=== PATIENT | female | born 1945 | race Caucasian/White ===

== ENCOUNTER → 2017-10-29 | Outpatient (CLI) | payer MEDICARE | LOC: M.RAD 09-18 15:25 | DX: Z12.31 Encounter for screening mammogram for malignant neoplasm of breast (principal); N91.2 Amenorrhea, unspecified; Z78.0 Asymptomatic menopausal state ==

== ENCOUNTER 2019-01-24 11:39 | Inpatient (IN) | payer MEDICARE ==
[~2019-01-24] VITALS: Ht 162.6 cm; Wt 69.7 kg
[2019-01-24 11:40] VITALS: BP 168/102
[2019-01-24] MEDS ORDERED: ZOLOFT100 MG PO (11:49)
[2019-01-24 12:05] LABS: ABSOLUTE BASOPHILS 0.1 thou/uL (0.0-0.2); ABSOLUTE EOSINOPHILS 0.1 thou/uL (0.0-0.7); ABSOLUTE LYMPHOCYTES 1.1 thou/uL (0.8-5.3); ABSOLUTE MONOCYTES 0.3 thou/uL (0.0-1.2); ABSOLUTE NEUTROPHILS 3.7 thou/uL (1.6-8.1); BASOPHILS 1.2 %; EOSINOPHILS 1.3 %; HEMATOCRIT 36.1 % (37.0-47.0); HEMOGLOBIN 12.4 gm/dL (12.0-15.0); LYMPHOCYTES 20.9 %; MCH 30.7 pg (26.0-34.0); MCHC 34.3 g/dL (28.0-37.0); MCV 89.6 fL (80.0-100.0); MPV 6.3 fl. (7.2-11.1); NUCLEATED RBCS 0 /100WBC; PLATELET COUNT* 292 thou/uL (150-400); POLYS 70.6 %; RBC 4.03 mil/uL (4.20-5.00); RDW-CV 13.1 % (10.5-14.5); WBC 5.2 thou/uL (4.0-11.0)
[2019-01-24 12:12] LABS: PROTIME 10.6 Seconds (9.20-11.50)
[2019-01-24 12:14] LABS: CALCIUM 8.7 mg/dL (8.5-10.1); CREATININE 0.8 mg/dL (0.6-1.3); POTASSIUM 3.6 mmol/L (3.5-5.1)
[2019-01-24 12:18] LABS: ALBUMIN 3.4 g/dL (3.4-5.0); TOTAL BILIRUBIN 0.5 mg/dL (<0.1-1.0); TOTAL PROTEIN 7.1 g/dL (6.4-8.2)
[2019-01-24 13:42] LABS: URINE BILIRUBIN NEGATIVE (Negative); URINE BLOOD 2+ (Negative); URINE COLOR YELLOW; URINE GLUCOSE-RANDOM NEGATIVE (Negative); URINE KETONES NEGATIVE (Negative); URINE LEUKOCYTES-REFLEX 1+ (Negative); URINE PROTEIN TRACE (Negative); URINE UROBILINOGEN 0.2 E.U./dl (0.2-1.0)
[2019-01-24 13:44] LABS: URINE CLARITY CLOUDY; URINE NITRITE-REFLEX POSITIVE (Negative)
[2019-01-24 14:00] LABS: SQUAMOUS 0-3 Few /LPF (0-3)
[2019-01-24 14:01] LABS: BACTERIA-REFLEX >30 Many /HPF (None Seen); CASTS None Seen /LPF (None Seen); CRYSTALS None Seen /LPF (None Seen); URINE RBC >20 Many /HPF (0-2); URINE WBC-REFLEX >25 Many /HPF (0-5)
[2019-01-24 14:52] VITALS: BP 163/81
[2019-01-24 15:10] VITALS: BP 158/84
--- NOTE | 2019-01-24 15:54 | EKG ---
[place] [address] ELECTROCARDIOGRAM REPORT Name: FIORDALIZA CHRISTIANSON Room: [address] ADM IN .R.#: [id number] Admission: 01/24/19 Attend Phys: Alma Lamb Discharge: Date of : 47 Report #: [id number] THIS REPORT FOR: //name// [facility] ED Test Date: 2019-01-24 Test Time: 11:51:51 Pat Name: FIORDALIZA CHRISTIANSON Department: Room: [facility] Gender: F Import Export Manager: dela cruz : 1945 Requested By: Santo Foreman Order Number: [id number] MD: Bran Castaneda Measurements Intervals [place] Rate: 74 P: 64 UT: 148 QRS: 50 QRSD: 80 T: 63 QT: 383 QTc: 425 Interpretive Statements Sinus rhythm Borderline T wave abnormalities Compared to ECG 02/28/2008 06:45:48 T-wave abnormality now present Electronically Signed On 01-24-2019 15:54:18 POLICY WRITER TYPIST by Bran Castaneda [email or web address] <ELECTRONICALLY SIGNED> By: Bran Castaneda MD, [facility] 01/24/19 1554 1151 1151 Bran Castaneda MD, [facility] /EPI
[2019-01-24] MEDS ORDERED: IMODIUM A-D2 MG PO (16:05)
[2019-01-24] MEDS ORDERED: CLARITIN10 M3 PO (16:07)
[2019-01-24] MEDS ORDERED: FAMOTIDINE10 MG PO (16:08)
--- NOTE | 2019-01-24 16:12 | 2DMMODE ---
[place] [address] 2 D/M-MODE ECHOCARDIOGRAM Name: FIORDALIZA CHRISTIANSON Room: [address] IN [facility]#: [id number] Admission: 01/24/19 Attend Phys: Alma mayberry Sa Discharge: Date of : 47 Date of Service: 01/24/19 1612 Report #: [id number] THIS REPORT FOR: //name// APPROVED REPORT Study performed: 01/24/2019 15:10:55 EXAM: Comprehensive 2D, Doppler, and color-flow Echocardiogram Patient Location: In-Patient Room #: [facility] Status: routine BSA: 1.67 HR: 65 bpm BP: 162/75 mmHg Rhythm: NSR Other Information Study Quality: Good Indications CVA/TIA Echo Enhancing Agent Indication: Rule out Shunt Agent(s) / Amount(s) Used: Agitated Saline 10 cc 2D Dimensions IVSd: 14.83 (7-11mm) LVOT Diam: 20.25 (18-24mm) LVDd: 43.88 mm PWd: 11.42 (7-11mm) LVDs: 32.88 (25-40mm) Aortic Root: 30.18 mm Volumes Left Atrial Volume (Systole) LA ESV Index: 29.20 mL/m2 Aortic Valve AoV Peak Carlin.: 0.87 m/s AO Peak Gr.: 3.00 mmHg LVOT Max P.21 mmHg AO Mean Gr.: 1.90 mmHg LVOT Mean P.97 mmHg LVOT Max V: 0.74 m/s AO V2 VTI: 18.38 cm LVOT Mean V: 0.45 m/s NADIYA (VTI): 2.90 cm2 LVOT V1 VTI: 16.54 [place] [address] 2 D/M-MODE ECHOCARDIOGRAM Name: FIORDALIZA CHRISTIANSON Room: [address] IN .R.#: [id number] Admission: 01/24/19 Attend Phys: Alma mayberry Sa Discharge: Date of : 47 Date of Service: 01/24/19 1612 Report #: [id number] Mitral Valve E/A Ratio: 0.69 MV Decel. Time: 354.30 ms MV E Max Carlin.: 0.47 m/s MV PHT: 102.75 ms MVA (PHT): 2.14 cm2 TDI E/Lateral E': 5.88 E/Medial E': 6.71 Medial E' Carlin.: 0.07 m/s Lateral E' Carlin.: 0.08 m/s Pulmonary Valve PV Peak Carlin.: 0.63 m/s PV Peak Gr.: 1.60 mmHg Tricuspid Valve RAP Estimate: 5.00 mmHg TR Peak Gr.: 30.38 mmHg RVSP: 35.00 mmHg PA Pressure: 35.00 mmHg Left Ventricle The left ventricle is normal size. There is normal LV segmental wall motion. Mild concentric left ventricular hypertrophy. Left ventricular systolic function is normal. The left ventricular ejection fraction is within the normal range. LVEF is 55-60%. Grade I - abnormal relaxation pattern. Right Ventricle The right ventricle is normal size. The right ventricular systolic function is normal. Atria Left atrium is mildly dilated. Interatrial septum is intact without evidence of ASD or PFO. The right atrium size is normal. Aortic Valve Mild aortic valve sclerosis. No aortic regurgitation is present. There is no aortic valvular stenosis. Mitral Valve There is mitral annular calcification. Trace mitral regurgitation. No evidence of mitral valve stenosis. Tricuspid Valve The tricuspid valve is normal in structure. Trace tricuspid regurgitation. estimated pa pressure 40 [place] [address] 2 D/M-MODE ECHOCARDIOGRAM Name: FIORDALIZA CHRISTIANSON Room: [address]#: [id number] Admission: 01/24/19 Attend Phys: Alma mayberry Sa Discharge: Date of : 47 Date of Service: 01/24/19 1612 Report #: [id number] Pulmonic Valve Pulmonic valve is not well visualized. There is no pulmonic valvular regurgitation. Great Vessels The aortic root is normal in size. IVC is normal in size and collapses >50% with inspiration. Pericardium There is no pericardial effusion. <Conclusion> Mild concentric left ventricular hypertrophy. LVEF is 55-60%. Left atrium is mildly dilated. Interatrial septum is intact without evidence of ASD or PFO. <ELECTRONICALLY SIGNED> By: Bran Castaneda MD, FACC 01/24/19 161 11 11 Bran Castaneda MD, FACC /INF
[2019-01-24 20:00] VITALS: BP 171/78
[2019-01-25] VITALS: BP 171/78
[2019-01-25 04:00] VITALS: BP 178/78
[2019-01-25 04:50] LABS: ALBUMIN 2.6 g/dL (3.4-5.0); ALKALINE PHOSPHATASE 56 U/L (46-116); ANION GAP 9 mmol/L (7-16); BUN 15 mg/dL (7-18); CHLORIDE 105 mmol/L (98-107); CHOLESTEROL 205 mg/dL (<200); CO2 22 mmol/L (21-32); CREATININE 0.6 mg/dL (0.6-1.3); GLUCOSE 96 mg/dL (70-99); HDL CHOLESTEROL 25 mg/dL (>40); LDL CHOLESTEROL 130 mg/dL (<100); POTASSIUM 3.6 mmol/L (3.5-5.1); SGOT 16 U/L (15-37); SGPT 10 U/L (30-65); SODIUM 136 mmol/L (136-145); TC:HDL 8.2 Ratio (Not establshd); TOTAL BILIRUBIN 0.3 mg/dL (<0.1-1.0); TRIGLYCERIDE 254 mg/dL (<150); VLDL 51 mg/dL (<40)
[2019-01-25 05:07] LABS: SERUM ASSESSMENT Slight Lipemia
[2019-01-25 09:00] VITALS: BP 174/73
[2019-01-25 11:42] VITALS: BP 168/74
[2019-01-25 15:57] VITALS: BP 135/76
[2019-01-26] VITALS: BP 189/78
[2019-01-26 02:06] LABS: GLYCOHEMOGLOBIN (HGB A1C) 5.7 % (4.8-5.6)
[2019-01-26 04:00] VITALS: BP 151/62
[2019-01-26 08:00] VITALS: BP 109/76
[2019-01-26] MEDS ORDERED: HYDROCHLOROTHIA25 M1 PO (10:44)
[2019-01-26] MEDS ORDERED: ASA5UEC PO (10:44)
[2019-01-26] MEDS ORDERED: MACROBID 100 M100 MG PO (10:44)
[2019-01-26] MEDS ORDERED: LIPITOR 40 MG T40 M1 PO (10:44)
[2019-01-26 12:16] VITALS: BP 170/65
[2019-01-26 15:51] VITALS: BP 173/85
[2019-01-26 17:51] VITALS: BP 173/85
--- NOTE | 2019-02-04 13:36 | CON ---
[address] [address] CONSULTATION Name: CHRISTIANSONFIORDALIZA Meaghan Room: [address] IN M.R.#: [id number] Admission: 01/24/19 Attend Phys: Alma Lamb Discharge: 01/26/19 Date of : 47 Report #: [id number] THIS REPORT FOR: //name// CC: Alma Betts DATE OF SERVICE: 01/25/2019 HISTORY OF PRESENT ILLNESS: This is a 73-year-old female patient who was evaluated by me for weakness in the right lower extremity and to some extent in the right upper extremity the day prior to admission. This started spontaneously without any trauma. It has not fluctuated much. She was admitted with aggravation of her weakness, but apparently has been stable since she has been admitted. She has a known history of hypertension. She is completely noncompliant with that. She does not take her medication. It is not because of finances. She said medication cause some nausea and vomiting. REVIEW OF SYSTEMS: Negative for any prior clinical stroke, but she does have an uncontrollable hypertension. She said that her blood pressure usually runs lower than what has been. She has a prior history of hysterectomy, anxiety, and depression. She used to smoke, but does not smoke now. A 14-point review of systems was carried out and was positive as described above. PAST MEDICAL HISTORY: Negative for stroke. FAMILY HISTORY: Negative for any early age stroke. SOCIAL HISTORY: She has a history of smoking, but does not smoke now. PHYSICAL EXAMINATION: NEUROLOGIC: Indicate that she is alert, responsive, able to follow simple and complex command. Her speech, concentration, fund of knowledge and memory is at her baseline. Cranial nerve examination II through XII looks unremarkable. She is definitely weak on the right side. Her sensation looks intact. There is no meningeal sign in this patient. There is no carotid bruit. IMAGING: She did have an MRI of the brain, which was reviewed that confirmed the findings. She had an MRA, which was okay. She had carotid Dopplers, which demonstrated diffuse disease, but not any hemodynamically significant stenosis. Her sed rate is somewhat high. Her lipid profile is markedly abnormal. Her blood pressure is running in acceptable range. It is 168/74. IMPRESSION: 1. Lacunar cerebrovascular accident in the location that is typical for small vessel disease caused by uncontrolled hypertension. 2. [place] [address] CONSULTATION Name: FIORDALIZA CHRISTIANSON Room: [address]#: [id number] Admission: 01/24/19 Attend Phys: Alma Lamb Discharge: 01/26/19 Date of : 47 Report #: [id number] 3. Noncompliance. 4. Uncontrolled hypertension. 5. Somewhat high sed rate. RECOMMENDATIONS: 1. Since is aspirin naive, so we will continue aspirin for the time being. 2. Intense statin therapy. 3. Sed rate evaluation as an outpatient. 4. Control her blood pressure, but cautiously. We should not lower the blood pressure too fast, but it needs to be lower than what she came in with. I will suggest putting her on some antihypertensive and keeping the blood pressure around 140-150 systolic. All of it was discussed with the family and the patient. Time spent about 50 minutes, majority counseling and coordinating. From neurological perspective, workup is complete and she can be transferred to rehabilitation whenever the bed is available. <ELECTRONICALLY SIGNED> By: Vishal Borja MD 02/04/19 1336 1217 [id number] Borja MD /nt
== END 2019-01-26 18:45 | DRG 65 ==
LOC: M.ERS 11:39 → M.2W 13:42 → M.TBA-ER 13:42 → M.2W 15:25
PROVIDERS: Emergency Medicine Emergency Medical Services; ADMIT Family Medicine
DX: I63.9 Cerebral infarction, unspecified (principal); N39.0 Urinary tract infection, site not specified; I10 Essential (primary) hypertension; F41.9 Anxiety disorder, unspecified; F32.9 Major depressive disorder, single episode, unspecified; B96.20 Unspecified Escherichia coli [E. coli] as the cause of diseases classified elsewhere; E78.5 Hyperlipidemia, unspecified; Z88.7 Allergy status to serum and vaccine; Z90.49 Acquired absence of other specified parts of digestive tract; Z88.0 Allergy status to penicillin; Z88.2 Allergy status to sulfonamides; Z90.710 Acquired absence of both cervix and uterus; Z79.82 Long term (current) use of aspirin; Z91.19 Patient's noncompliance with other medical treatment and regimen; Z23 Encounter for immunization

== ENCOUNTER 2019-01-26 13:10 | Inpatient (IN) | payer MEDICARE ==
[~2019-01-26] VITALS: Ht 162.6 cm; Wt 70.3 kg
[~2019-01-26 13:10] MED LIST: ASA5UEC PO; CLARITIN10 M3 PO; FAMOTIDINE10 MG PO; HYDROCHLOROTHIA25 M1 PO; IMODIUM A-D2 MG PO; LIPITOR 40 MG T40 M1 PO; MACROBID 100 M100 MG PO; ZOLOFT100 MG PO
[2019-01-26 19:30] VITALS: BP 192/77
[2019-01-27 04:35] LABS: HEMATOCRIT 31.2 % (37.0-47.0); HEMOGLOBIN 10.6 gm/dL (12.0-15.0); MCH 30.5 pg (26.0-34.0); MCHC 34.1 g/dL (28.0-37.0); MCV 89.5 fL (80.0-100.0); MPV 6.6 fl. (7.2-11.1); RBC 3.48 mil/uL (4.20-5.00); RDW-CV 12.9 % (10.5-14.5); WBC 6.2 thou/uL (4.0-11.0)
[2019-01-27 04:39] LABS: CALCIUM 8.5 mg/dL (8.5-10.1); CREATININE 0.6 mg/dL (0.6-1.3)
[2019-01-27 07:57] VITALS: BP 149/74
[2019-01-27 19:41] VITALS: BP 144/73
[2019-01-28 04:37] LABS: HEMATOCRIT 31.9 % (37.0-47.0); HEMOGLOBIN 10.6 gm/dL (12.0-15.0); MCH 30.2 pg (26.0-34.0); MCHC 33.2 g/dL (28.0-37.0); MPV 6.7 fl. (7.2-11.1); RBC 3.5 mil/uL (4.20-5.00); RDW-CV 13.1 % (10.5-14.5); WBC 6.3 thou/uL (4.0-11.0)
[2019-01-28 05:01] LABS: CALCIUM 8.7 mg/dL (8.5-10.1); CREATININE 0.7 mg/dL (0.6-1.3); MAGNESIUM 2.1 mg/dL (1.8-2.4); POTASSIUM 4.4 mmol/L (3.5-5.1)
[2019-01-28 08:27] VITALS: BP 156/90
[2019-01-28 20:13] VITALS: BP 139/69
[2019-01-29 07:46] VITALS: BP 138/58
[2019-01-29 20:17] VITALS: BP 123/63
[2019-01-30 07:46] VITALS: BP 165/78
[2019-01-30 10:49] LABS: URINE BILIRUBIN NEGATIVE (Negative); URINE BLOOD 3+ (Negative); URINE CLARITY SL CLOUDY; URINE COLOR YELLOW; URINE GLUCOSE-RANDOM NEGATIVE (Negative); URINE KETONES NEGATIVE (Negative); URINE LEUKOCYTES-REFLEX 1+ (Negative); URINE NITRITE-REFLEX NEGATIVE (Negative); URINE PROTEIN 1+ (Negative); URINE SPECIFIC GRAVITY <= 1.005 (1.005-1.030); URINE UROBILINOGEN 0.2 E.U./dl (0.2-1.0)
[2019-01-30 11:07] LABS: SQUAMOUS 0-3 Few /LPF (0-3)
[2019-01-30 11:08] LABS: URINE WBC-REFLEX 0-5 Rare /HPF (0-5)
[2019-01-30 11:09] LABS: BACTERIA-REFLEX >30 Many /HPF (None Seen); CASTS None Seen /LPF (None Seen); CRYSTALS None Seen /LPF (None Seen); MUCUS None Seen strn/LPF (None Seen)
[2019-01-30 19:30] VITALS: BP 116/77
[2019-01-31 04:06] LABS: HEMATOCRIT 29.2 % (37.0-47.0); HEMOGLOBIN 9.9 gm/dL (12.0-15.0); MCH 30.6 pg (26.0-34.0); MCHC 33.9 g/dL (28.0-37.0); MCV 90.2 fL (80.0-100.0); MPV 6.3 fl. (7.2-11.1); RBC 3.24 mil/uL (4.20-5.00); RDW-CV 13.2 % (10.5-14.5); WBC 6.6 thou/uL (4.0-11.0)
[2019-01-31 04:30] LABS: CALCIUM 8.3 mg/dL (8.5-10.1); MAGNESIUM 2.3 mg/dL (1.8-2.4); POTASSIUM 4.5 mmol/L (3.5-5.1)
[2019-01-31 04:40] LABS: CREATININE 4.4 mg/dL (0.6-1.3)
[2019-01-31 07:49] VITALS: BP 134/59
[2019-01-31 19:30] VITALS: BP 139/62
[2019-02-01 06:29] LABS: CALCIUM 8.1 mg/dL (8.5-10.1); CREATININE 5.9 mg/dL (0.6-1.3); MAGNESIUM 1.9 mg/dL (1.8-2.4); POTASSIUM 4.2 mmol/L (3.5-5.1)
[2019-02-01 08:00] VITALS: BP 148/67
[2019-02-01 10:28] LABS: URINE BILIRUBIN NEGATIVE (Negative); URINE BLOOD 2+ (Negative); URINE CLARITY CLEAR; URINE COLOR YELLOW; URINE GLUCOSE-RANDOM NEGATIVE (Negative); URINE KETONES NEGATIVE (Negative); URINE LEUKOCYTES-REFLEX 1+ (Negative); URINE NITRITE-REFLEX NEGATIVE (Negative); URINE PROTEIN NEGATIVE (Negative); URINE SPECIFIC GRAVITY <= 1.005 (1.005-1.030); URINE UROBILINOGEN 0.2 E.U./dl (0.2-1.0)
[2019-02-01 10:42] LABS: SQUAMOUS 0-3 Few /LPF (0-3)
[2019-02-01 10:43] LABS: BACTERIA-REFLEX 1-9 Few /HPF (None Seen); CASTS None Seen /LPF (None Seen); CRYSTALS None Seen /LPF (None Seen); MUCUS 0-3 Light strn/LPF (None Seen); URINE RBC 3-10 Few /HPF (0-2); URINE WBC-REFLEX 0-5 Rare /HPF (0-5)
[2019-02-01 19:30] VITALS: BP 117/44
[2019-02-02 05:25] LABS: CREATININE 6.4 mg/dL (0.6-1.3); POTASSIUM 4.8 mmol/L (3.5-5.1)
[2019-02-02 07:45] VITALS: BP 167/56
--- NOTE | 2019-02-02 12:11 | CON ---
[address] [address] CONSULTATION Name: CHRISTIANSONFIORDALIZA Meaghan Room: [address] ADM IN M.R.#: [id number] Admission: 01/26/19 Attend Phys: Juan Daniel Flores MD Discharge: Date of : 47 Report #: [id number] THIS REPORT FOR: //name// CC: Syed Newmanon Juan Daniel Flores DATE OF SERVICE: 02/01/2019 NEPHROLOGY CONSULTATION LOCATION: The patient is at [facility]. She is in room 324 on the rehab unit. ATTENDING PHYSICIAN: Juan Daniel Flores MD I am asked to see this 73-year-old female at the request of Dr. Frances for acute kidney injury. HISTORY OF PRESENT ILLNESS: The patient suffered a CVA on 01/24/2019 and has had weakness in her right upper and lower extremity. She is on the rehab unit and is improving. She has no history of any acute kidney injury in the past. She has had some kidney stone issues in the past, but it has been quite a long time. She has had trouble with urinary retention recently. Had a Tillman catheter placed, then removed and then replaced about a day ago. Her initial creatinine when she presented to the hospital was 0.6 on the 01/27/2019, but by 01/31/2019 it was up to 4.4 and today 5.9. She has had possible implicating medications stopped already. PAST MEDICAL HISTORY: Peripheral vascular disease. She has a 7 cm abdominal aortic aneurysm noted on her renal ultrasound; she was not aware of this prior to our discussion. 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 She has had a UTI. She has known hypertension, which has not been under the best of control and has been untreated. She has hyperlipidemia, anxiety and depression. She has been a former tobacco user, but does not use tobacco presently. PAST SURGICAL HISTORY: She has had surgeries that she recalls, which does include a hysterectomy, appendectomy, cholecystectomy in the past as well. FAMILY HISTORY: Remarkable for hypertension and vascular disease. SOCIAL HISTORY: She is a former tobacco user. No alcohol or recreational drugs. She has been quite independent prior to her CVA. ALLERGIES: PENICILLIN, SULFA AND TETANUS [place] [address] CONSULTATION Name: CHRISTIANSONFIORDALIZA L Room: [address] IN [facility]#: [id number] Admission: 01/26/19 Attend Phys: Juan Daniel Flores MD Discharge: Date of : 47 Report #: [id number] MEDICATIONS: At this time include alprazolam 0.25 mg every 8 hours, clopidogrel 75 mg daily, aspirin 325 mg daily, atorvastatin 40 mg daily, famotidine 10 mg daily, hydrochlorothiazide 25 mg daily, lisinopril 10 mg daily, loperamide 2 mg daily, magnesium supplement p.r.n. Potassium has been supplemented p.r.n. She has received sodium phosphate p.r.n. as well. She is on nitrofurantoin 100 mg b.i.d., docusate 100 mg b.i.d., sertraline 50 mg at bedtime, acetaminophen 1-2 tablets q.4h. p.r.n., antacids q.4h. p.r.n., bisacodyl daily rectally p.r.n., loratadine 10 mg daily p.r.n., zolpidem 5 mg at bedtime p.r.n. She has already had her hydrochlorothiazide as well as her lisinopril discontinued. REVIEW OF SYSTEMS: HEENT: No recent changes in vision or hearing. CARDIAC: She has no chest discomfort. No sensation of fluttering or arrhythmias. PULMONARY: Denies any shortness of air. GENERAL: In general, she has been concerned about the weakness in her right side, but no other concerns or generalized symptoms. She specifically had no fever, chills, cough or sputum production. GASTROINTESTINAL: She has some constipation. No nausea, vomiting or diarrhea. GENITOURINARY: She does have urinary retention. She has had to have a Tillman catheter placed once again, it is present at this time and draining some yellow urine. HEMATOLOGIC AND LYMPHATIC: No bruising or bleeding or known anemia. No malignancy history. SKIN AND INTEGUMENT: No rashes or itching. PSYCHIATRIC: She does have anxiety and depression. MUSCULOSKELETAL: Weakness, especially on the right as well as including both her upper and lower extremities. NEUROLOGIC: Positive for her recent CVA, which is a left internal capsule ischemic CVA with resultant right-sided weakness. Other 14-point review of systems as above. PHYSICAL EXAMINATION: GENERAL: She is awake, alert, sitting at her bedside chair. VITAL SIGNS: Presently, her vital signs show that she is afebrile, heart rate 78, respirations 18, blood pressure 148/60, O2 sat 95% on room air. HEENT: Atraumatic, normocephalic. Pupils react to light. NECK: Supple without increased jugular venous pressure. CHEST: Clear. HEART: S1, S2 regular rhythm. No rubs, no gallops. ABDOMEN: Soft, nontender, positive bowel sounds. Tillman catheter is in place. EXTREMITIES: Show no edema. Negative Homans, 2+ femoral pulses distally. Extremities are perfused, warm and dry. [address] [place] [address] CONSULTATION Name: FIORDALIZA CHRISTIANSON Room: [address] ADM IN .R.#: [id number] Admission: 01/26/19 Attend Phys: Juan Daniel Flores MD Discharge: Date of : 47 Report #: [id number] NEUROLOGIC: She has right-sided weakness of both arm and leg. She is walking with the use of a walker. She otherwise has no new acute or focal findings. Cranial nerves appear to be at baseline. Sensory is intact. LABORATORY DATA: Shows an admitting creatinine of 0.6, this was on 01/27/2019. On 01/31/2019, her creatinine loni to 4.4 and is up to 5.9 today. Other laboratory values include a sodium of 129, it was 142 on admission, potassium 4.2, chloride 94, CO2 of 22, BUN and creatinine 41 and 5.9, glucose 101, calcium 8.1, magnesium 1.9. Iron low at 29. Iron saturation low at 10%. Folate low at 7.7. Her urine is positive for 2+ blood, 1+ leukocyte esterase, 1-9 bacteria. IMAGING STUDIES: Include a renal ultrasound that was done today that does show no evidence of hydronephrosis on either side, but she does have aortic atherosclerosis, fusiform distal abdominal aortic aneurysm 2.8 x 2.9 x 7.7 cm in length. She has no evidence of any left or right-sided hydronephrosis. IMPRESSION: 1. Acute kidney injury, likely multifactorial and related to urinary obstruction as well as continued diuretic and RONEN one use. I do not see any evidence of any contrasted imaging studies that were performed. Her medications are reviewed and she has already had her lisinopril and hydrochlorothiazide discontinued as well as her ciprofloxacin. IV fluids are running. 2. Recent left internal capsule ischemic cerebrovascular accident with right-sided weakness. 3. Urinary tract infection may also be contributing to her acute kidney injury. 4. Hypertension, untreated and poorly controlled. 5. Hyperlipidemia. 6. Medication noncompliance history. 7. Anxiety and depression. 8. Irritable bowel syndrome. 9. Urinary retention with Tillman catheter placement. 10. Anemia, likely of nutritional deficiency with both low iron and folic acid. PLAN: The patient has IV fluids going, possible implicating medications have been stopped. She is presently not receiving any ciprofloxacin or IV antibiotics. We will check urine for eosinophils, check a serum protein electrophoresis, other immunological studies and follow her labs closely. I explained to her that her serum creatinine may still worsen before it hopefully plateaus and begins to improve. Further recommendations to follow. <ELECTRONICALLY SIGNED> By: Candelaria Adams MD 02/02/19 1211 1642 [id number] Adams MD /nt
[2019-02-02 19:45] VITALS: BP 142/49
[2019-02-03 04:17] LABS: HEMATOCRIT 27.2 % (37.0-47.0); HEMOGLOBIN 9.3 gm/dL (12.0-15.0); MCH 31.1 pg (26.0-34.0); MCV 91.6 fL (80.0-100.0); MPV 6.9 fl. (7.2-11.1); RBC 2.97 mil/uL (4.20-5.00); RDW-CV 13.3 % (10.5-14.5); WBC 5.8 thou/uL (4.0-11.0)
[2019-02-03 04:43] LABS: CALCIUM 8.1 mg/dL (8.5-10.1); CREATININE 6.8 mg/dL (0.6-1.3); POTASSIUM 4.7 mmol/L (3.5-5.1)
[2019-02-03 08:05] VITALS: BP 174/66
[2019-02-03 13:52] LABS: SMEAR FOR EOSINOPHILS Few per HPF
--- NOTE | 2019-02-03 15:15 | CON ---
[facility] [address] [place] [address] CONSULTATION Name: CHRISTIANSONFIORDALIZA Meaghan Room: [address] IN M.R.#: [id number] Admission: 01/26/19 Attend Phys: Juan Daniel Flores MD Discharge: Date of : 47 Report #: [id number] THIS REPORT FOR: //name// CC: Syed Flores MD DATE OF SERVICE: 01/31/2019 REASON FOR CONSULT: Chronic intermittent diarrhea and constipation. The patient also has vomited x 1 last night. REQUESTING PHYSICIAN: Dr. Christianson. HISTORY OF PRESENT ILLNESS: This is a 73-year-old female who was admitted to rehabilitation after suffering from right-sided weakness, which was found to be secondary to left internal capsule ischemic CVA. The patient reports that she is supposed to receive 3 weeks of rehabilitation. She is progressively getting better. She reports that she has had a colonoscopy many years ago, but does not remember the findings. She denies any family history of colon cancer. The patient denies any upper GI symptoms, but reports that she vomited last night since the meat loaf that she had eaten; was not agreeing with her. She usually denies any upper GI symptoms and she denies nausea, vomiting, dysphagia, odynophagia, dyspepsia or GERD. She has had chronic intermittent diarrhea and constipation. She is on Bentyl 10 mg p.o. t.i.d. and also takes one tablet of Imodium every morning. She believes that her diarrhea is not much of a problem at this time. She denies any hematochezia or melena. PAST MEDICAL HISTORY: Significant for history of recent CVA with right-sided weakness, urinary tract infection, hypertension, depression, chronic anticoagulation therapy, insomnia. ALLERGIES: SIGNIFICANT TO PENICILLIN, SULFA AND TETANUS. MEDICATIONS: Please refer to MAR. SOCIAL HISTORY: The patient has had a recent CVA and is in rehabilitation. She has history of tobaccoism, but currently does not smoke. She denies alcohol use. FAMILY HISTORY: Negative for GI malignancy. PHYSICAL EXAMINATION: [place] [address] CONSULTATION Name: SAMMYFIORDALIZA Meaghan Room: [address]#: [id number] Admission: 01/26/19 Attend Phys: Juan Daniel Flores MD Discharge: Date of : 47 Report #: [id number] VITAL SIGNS: Reveals blood pressure of 134/59, respirations 17, pulse 71, temperature 98.5. LUNGS: Clear. CARDIOVASCULAR: Regular. ABDOMEN: Soft, nontender, nondistended. Bowel sounds are positive. NEUROLOGIC: The patient has right-sided upper extremity weakness. She is alert and oriented x 3. LUNGS: Clear to auscultation bilaterally. CARDIOVASCULAR: Regular rate. ABDOMEN: Soft, nontender, nondistended. Bowel sounds are positive. LABORATORY DATA: Reveal sodium of 129, potassium 4.5, BUN is 36, creatinine is 4.4, and glucose is 117. Liver function tests are all within normal limits. Albumin is 2.6. WBC is 6.6 with hemoglobin of 9.9 and platelets of 262. ASSESSMENT AND PLAN: The patient with acute renal failure, who has been complaining of chronic intermittent diarrhea and constipation and reports that she does not believe it is much of a problem. The patient has also had vomited last night, but reports that she vomited because she did not like the taste of the meat loaf that she ate last night. She denies any upper GI symptoms. Given the patient's anemia with hemoglobin of 9, I will recommend to order iron study, B12 and folic acid levels. We will consider endoscopic evaluation when the patient is more stable from her CVA. Meanwhile, she has some electrolyte abnormalities and renal failure, which has to be addressed. <ELECTRONICALLY SIGNED> By: Gt David MD 02/03/19 1515 1315 31Gt David MD /nt
[2019-02-03 19:38] VITALS: BP 156/56
[2019-02-04 05:47] LABS: CALCIUM 8.2 mg/dL (8.5-10.1); CREATININE 6.5 mg/dL (0.6-1.3); POTASSIUM 4.8 mmol/L (3.5-5.1)
[2019-02-04 07:37] VITALS: BP 152/53
[2019-02-04 20:15] VITALS: BP 152/69
[2019-02-05 06:05] LABS: CREATININE 5.7 mg/dL (0.6-1.3); POTASSIUM 5.1 mmol/L (3.5-5.1)
[2019-02-05 08:00] VITALS: BP 162/65
[2019-02-05 18:30] VITALS: BP 147/55
[2019-02-05 20:30] VITALS: BP 156/74
[2019-02-06 05:18] LABS: CALCIUM 7.8 mg/dL (8.5-10.1); POTASSIUM 4.9 mmol/L (3.5-5.1)
[2019-02-06 05:26] LABS: CREATININE 4.6 mg/dL (0.6-1.3)
[2019-02-06 07:40] VITALS: BP 157/76
[2019-02-06 19:30] VITALS: BP 159/63
[2019-02-07 04:40] LABS: CALCIUM 7.7 mg/dL (8.5-10.1); CREATININE 3.8 mg/dL (0.6-1.3); POTASSIUM 3.9 mmol/L (3.5-5.1)
[2019-02-07 07:52] VITALS: BP 157/70
[2019-02-07 20:00] VITALS: BP 151/67
[2019-02-08 04:57] LABS: CREATININE 3.2 mg/dL (0.6-1.3); POTASSIUM 4.3 mmol/L (3.5-5.1)
[2019-02-08 07:10] VITALS: BP 158/68
[2019-02-08 19:20] VITALS: BP 148/51
[2019-02-09 04:53] LABS: CALCIUM 8.1 mg/dL (8.5-10.1); CREATININE 2.7 mg/dL (0.6-1.3); POTASSIUM 4.2 mmol/L (3.5-5.1)
[2019-02-09 08:11] VITALS: BP 165/79
[2019-02-09 19:28] VITALS: BP 115/58
[2019-02-10 04:08] LABS: CALCIUM 8.7 mg/dL (8.5-10.1); CREATININE 2.1 mg/dL (0.6-1.3); POTASSIUM 4.2 mmol/L (3.5-5.1)
[2019-02-10 08:20] VITALS: BP 164/69
[2019-02-10 20:00] VITALS: BP 125/59
[2019-02-11 05:16] LABS: CALCIUM 8.9 mg/dL (8.5-10.1); CREATININE 1.9 mg/dL (0.6-1.3); POTASSIUM 4.2 mmol/L (3.5-5.1)
[2019-02-11 08:02] VITALS: BP 148/64
[2019-02-11 20:04] VITALS: BP 147/62
[2019-02-11 20:08] VITALS: BP 124/70
[2019-02-12 04:17] LABS: CALCIUM 8.9 mg/dL (8.5-10.1); CREATININE 1.6 mg/dL (0.6-1.3); POTASSIUM 4.2 mmol/L (3.5-5.1)
[2019-02-12 08:29] VITALS: BP 156/75
[2019-02-12 20:05] VITALS: BP 141/61
[2019-02-13 04:42] LABS: CREATININE 1.5 mg/dL (0.6-1.3); POTASSIUM 4.3 mmol/L (3.5-5.1)
[2019-02-13 07:49] VITALS: BP 140/74
[2019-02-13 19:30] VITALS: BP 134/60
[2019-02-14 05:12] LABS: CALCIUM 8.7 mg/dL (8.5-10.1); CREATININE 1.5 mg/dL (0.6-1.3); POTASSIUM 4.4 mmol/L (3.5-5.1)
[2019-02-14 08:13] VITALS: BP 168/79
[2019-02-14 20:30] VITALS: BP 117/66
[2019-02-15 04:27] LABS: CREATININE 1.4 mg/dL (0.6-1.3); POTASSIUM 4.3 mmol/L (3.5-5.1)
[2019-02-15 07:24] VITALS: BP 151/78
[2019-02-15 10:38] VITALS: BP 151/78
[2019-02-15] MEDS ORDERED: FLOMAX0.4 MG PO (13:16)
[2019-02-15] MEDS ORDERED: LIPITOR 40 MG T40 M1 PO (13:16)
[2019-02-15] MEDS ORDERED: PLAVIX 75 MG TA75 M1 PO (13:16)
[2019-02-15] MEDS ORDERED: PNV 29-1 TABLE1 EACH PO (13:17)
[2019-02-15 14:33] VITALS: BP 151/78
== END 2019-02-15 15:59 | disposition home health service (06) | DRG 56 ==
LOC: M.REH 13:10
PROVIDERS: Family Medicine; Internal Medicine; Internal Medicine Nephrology; ADMIT Physical Medicine & Rehabilitation
PROC: 5A1D70Z Performance of Urinary Filtration, Intermittent, Less than 6 Hours Per Day (ICD-10-PCS; principal; 2019-02-03)
DX: I69.351 Hemiplegia and hemiparesis following cerebral infarction affecting right dominant side (principal); I63.9 Cerebral infarction, unspecified; N17.0 Acute kidney failure with tubular necrosis; N39.0 Urinary tract infection, site not specified; I10 Essential (primary) hypertension; E78.5 Hyperlipidemia, unspecified; R33.9 Retention of urine, unspecified; K58.1 Irritable bowel syndrome with constipation; K58.0 Irritable bowel syndrome with diarrhea; G47.00 Insomnia, unspecified; I73.9 Peripheral vascular disease, unspecified; F41.8 Other specified anxiety disorders; I71.4 Abdominal aortic aneurysm, without rupture; I65.22 Occlusion and stenosis of left carotid artery; D50.9 Iron deficiency anemia, unspecified; J20.8 Acute bronchitis due to other specified organisms; Z91.14 Patient's other noncompliance with medication regimen; Z88.0 Allergy status to penicillin; Z88.2 Allergy status to sulfonamides; Z88.7 Allergy status to serum and vaccine; Z90.49 Acquired absence of other specified parts of digestive tract; Z90.710 Acquired absence of both cervix and uterus; Z87.891 Personal history of nicotine dependence; Z83.3 Family history of diabetes mellitus; Z82.49 Family history of ischemic heart disease and other diseases of the circulatory system; Z87.440 Personal history of urinary (tract) infections; Z79.01 Long term (current) use of anticoagulants; Z23 Encounter for immunization